=== PATIENT | female | born 1980 | race Caucasian/White ===

== ENCOUNTER 2019-01-17 06:43 | Observation (INO) ==
[2019-01-17] MEDS ORDERED: Ketorolac 30 MG/ML VIAL IVP ONE (10:27)
[2019-01-17] MEDS ORDERED: *HR* FentaNYL (PF) 100 MCG/2 ML VIAL IVP ONE (10:27)
[2019-01-17] MEDS ORDERED: Ondansetron 4 MG/2 ML VIAL IVP PRN ×2 (10:36→14:34)
--- NOTE | 2019-01-17 10:40 | Acute Care Surgery H&P ---
Date of Encounter: 01/17/19 Time of Encounter: 10:38 Assessment and Plan (1) Acute appendicitis Current Visit: Yes Status: Acute The assessment and plan as outlined above was discussed with the patient and/or family members who expressed understanding and agreement. All questions were answered. I explained to the patient that I personally reviewed her CT scan images and report which does demonstrate evidence of acute appendicitis. We will help con trol her pain to proceed with a laparoscopic appendectomy today. Risk and benefits have been discussed with the patient and her family members and they agree to the above plan. Qualifiers: Acute appendicitis type: with localized peritonitis Appendicitis gangrene presence: without gangrene Appendicitis perforation presence: without perforation Appendicitis abscess presence: without abscess Qualified Code(s): K35.30 - Acute appendicitis with localized peritonitis, without perforation or gangrene History of Present Illness Chief complaint: Right lower abdominal pain HPI: Ms. Panchal is a 38 year old female with a past medical history significant for iron deficiency anemia and vitamin D deficiency who states that yesterday she had severe and sudden onset of right lower quadrant abdominal pain that is sharp in nature. She says the pain radiates to the lower pelvic area and towards the midline. She denies any nausea or vomiting and states that she had a bowel movement earlier with no rectal bleeding identified. Beause of her persistent and severe abdominal pain she presented to [facility] and was subsequently transferred to [facility] for further evaluation. Past Med Surg Social Fam HX - Past Medical History Medical history: no medical history Psychiatric history: no psych history - Past Surgical History Surgical History: - Social History Smoking Status: Never smoker Smokeless Tobacco Status: No Alcohol use: none Drug use: none Medications and Allergies No Known Home Drugs 01/17/19 [History] Allergy/AdvReac Type Severity Reaction Status Date / Time No Known Allergies Allergy Verified 01/17/19 03:15 Review of Systems All systems PM: reviewed and no additional remarkable complaints except as stated All systems PM: The remainder of the systems were reviewed and are negative General Surgery Exam Initial Vital Signs Temp Pulse Resp BP Pulse Ox 100.1 F H 99 15 116/73 96 01/17/19 10:15 01/17/19 10:15 01/17/19 10:15 01/17/19 10:15 01/17/19 10:15 - Eyes PERRL, normal ocular movement - Respiratory normal expansion, normal respiratory effort, clear to auscultation - Cardiovascular Cardiovascular exam: Present: RRR - Abdomen Abdomen general surgery: Present: bowel sounds present, soft, tender (Positive pain to palpation in the RLQ) - Neurologic Present: CN 2-12 grossly intact - Musculoskeletal Present: other (No clubbing, cyanosis, or edema) - Psychiatric Psychiatric general surgery: Present: A&Ox3, oriented to person, oriented to place, oriented to time Results - Labs All other labs normal. - Imaging CT scan - abdomen: report reviewed, image reviewed (I personally reviewed the CT scan images and report which shows significant inflammation of the appendix with evidence of an appendicolith. No free air identified)
[2019-01-17] MEDS ORDERED: 0.9 % Sodium Chloride 1,000 ML IVC SCH (10:45)
[2019-01-17] MEDS ORDERED: *HR* FentaNYL (PF) 100 MCG/2 ML VIAL ONE (12:37)
[2019-01-17] MEDS ORDERED: *HR* Midazolam HCl 2 MG/2 ML VIAL ONE (12:38)
[2019-01-17] MEDS ORDERED: *HR* Propofol 200 MG/20 ML VIAL IVP ONE (12:38)
[2019-01-17] MEDS ORDERED: Dexamethasone 4 MG/ML VIAL ONE (12:40)
[2019-01-17] MEDS ORDERED: Lidocaine -MPF 2% 2 ML VIAL ONE (12:40)
[2019-01-17] MEDS ORDERED: *HR* Succinylcholine 200 MG/10 ML VIAL IVP ONE (12:40)
[2019-01-17] MEDS ORDERED: *HR* Rocuronium Bromide 50 MG/5 ML VIAL ONE (12:40)
--- NOTE | 2019-01-17 12:41 | Anesthesia Evaluation PreOp ---
Date of Encounter: 01/17/19 Time of Encounter: 12:39 - Past History Planned Operation: Laparoscopic Appendectomy Cardiac History: Denies any Significant Hx Pulmonary History: Denies Any Significant HX CLINIC ADMINISTRATOR History: Denies Any Significant HX Other Medical History: Denies Any Significant HX Anesthesia History: No Prior Anesthetic Complications, Past Anesthesia Test: Negative (01/17/2019) Alcohol Use: none Drug use: none Medications and Allergies No Known Home Drugs 01/17/19 [History] Allergy/AdvReac Type Severity Reaction Status Date / Time No Known Allergies Allergy Verified 01/17/19 03:15 - Meds/Allergy Pre-op Review Medications Reviewed: Yes Allergies Reviewed: Yes Beta Blockers on Current Med List: No Anesthesia Results - Labs Laboratory Tests 01/17/19 01/17/19 01/17/19 03:30 03:50 03:50 WBC 13.4 H Hgb 12.9 Hct 38.4 Plt Count 219 PT INR Sodium 137 Potassium 3.3 L BUN 16 Creatinine 0.80 Urine Test Negative 01/17/19 06:50 WBC Hgb Hct Plt Count PT 12.6 H INR 1.1 Sodium Potassium BUN Creatinine Urine Test Anesthesia Exam Vital Signs/O2 Sat, Most Current Temp Pulse Resp BP Pulse Ox 100.1 F H 99 15 116/73 96 01/17/19 10:15 01/17/19 10:15 01/17/19 10:15 01/17/19 10:15 01/17/19 10:47 Height: 5'5''/1.65m Weight: 160 lbs/72.6 kg NPO (# of Hours): 8 Pain Scale: 0 Pain Scale Used: Numeric (1 - 10) - HEENT Pupil (Motor): EOMI Mallampati: II Teeth: Normal Oral Opening: Greater than 3 - CLINIC ADMINISTRATOR LOC: Oriented CLINIC ADMINISTRATOR Motor: Normal RUE, Normal LUE, Normal RLE, Normal LLE, Normal Face CLINIC ADMINISTRATOR Sensory: Normal: RUE, LUE, RLE, LLE, Face - Cardiac Rhythm: Regular Murmur: None - Pulmonary Breath Sounds: bilateral Clear Respiratory Effort: Symmetrical Anesthesia Assess/Plan ASA Score: 1 Level of consciousness: Cooperative, Oriented, Tranquil Anesthetic Plan: General Monitoring Plan: Standard Monitors Recovery Plan: PACU
[2019-01-17] MEDS ORDERED: *HR* OxyCODONE Immed Rel 5 MG TABLET PO PRN (12:42)
[2019-01-17] MEDS ORDERED: *HR* HYDROmorphone (PF) 1 MG/ML SYRINGE IVP PRN (12:42)
[2019-01-17] MEDS ORDERED: Lidocaine -MPF 4% 5 ML AMPUL ONE (12:42)
[2019-01-17] MEDS ORDERED: Acetaminophen IV 1,000 MG/100 ML INFUS..BTL ONE (12:54)
[2019-01-17] MEDS ORDERED: *HR* HYDROMORPHONE 2 MG/ML VIAL ONE (13:24)
[2019-01-17] MEDS ORDERED: Neostigmine Methylsulfate 3 MG/3 ML SYRINGE ONE (13:29)
--- NOTE | 2019-01-17 13:53 | Operative Note ---
Date of procedure: 01/17/19 Pre-op diagnosis: Acute appendicitis Post-op diagnosis: same Procedure: Laparoscopic appendectomy Anesthesia: GETA Surgeon: Shade Fernandez Was there an parking assistant present: No Estimated blood loss (cc): 5 Specimen: appendix Condition: stable Disposition: PACU Procedure in Detail: Date of surgery: 01/17/19 After properly identifying the patient, the patient was brought to the operating room and placed in the supine position. After proper IV sedation was achieved followed by general endotracheal intubation, the patient's abdomen was prepped and draped in a normal sterile fashion. A timeout was performed noting the patient's name and type of procedure to be performed. On examination the patient had a small umbilical hernia noted. Half percent Marcaine with epinephrine was used to infiltrate the epidermal, dermal, and subcutaneous tissue just inferior to the umbilicus. An 11 blade scalpel was used to make an incision in this area and dissection was carried down to the hernia defect. The 12 mm port was placed through the hernia defect and a laparoscopic camera was placed through the port which showed no injury to the intra-abdominal organs upon entry. The abdomen was insufflated with carbon dioxide and a suprapubic 5 mm port and a left lower quadrant 5 mm port were then placed under direct camera visualization. The patient was placed in a Trendelenburg position with the left side tilted downwards and the right lower quadrant was examined. The appendix did show evidence of thickening with necrotic of the erosa at the mid to distal portion of the appendix, consistent with acute appendicitis. The appendix was carefully dissected away from the lateral sidewall attachments with Bovie cauterization and blunt dissection. The mesentery of the appendix was also transected with a laparoscopic LigaSure. This dissection was carried down to the base of the appendix which was transected with a laparoscopic SAURABH stapler. The appendix was removed from the abdomen via an Endobag. Reinspection demonstrated maintenance of hemostasis at the staple line and the pelvis was examined. There was evidence of purulent exudate within the pelvis which was easily suctioned. The pelvis and right lower quadrant were then copiously irrigated with normal saline solution until the effluent was clear. Once again the staple line of the appendiceal stump was examined with maintenance of hemostasis noted and all ports are then removed from the abdomen after the abdomen was desufflated. The hernia defect was closed/repaired in a [id number] fashion with 0 Vicryl suture. The epidermal and dermal layer for the remaining incisions were closed with 4-0 Monocryl sutures. Needle, sponge, and instrument counts were correct 2 and the incisions were covered with Steri-Strips and Band-Aids. The patient was aroused from IV sedation, extubated in the operating room without complication, and transported to the recovery room in stable condition.
--- NOTE | 2019-01-17 14:27 | Anesthesia Evaluation Post Op ---
Date of Encounter: 01/17/19 Time of Encounter: 14:25 - Vital Signs Vital Signs: Vital Signs/O2 Sat, Most Current Temp Pulse Resp BP Pulse Ox 99.1 F 64 16 105/63 94 01/17/19 13:59 01/17/19 14:19 01/17/19 14:19 01/17/19 14:19 01/17/19 14:19 - Lungs Lungs: Clear Ascult./Percussion - Airway Airway: Non-obstructed - Cardiovascular Regular Rate - Mental Status Mental Status: Alert & Oriented, Answers Appropriately, Baseline Status - Pain Pain Scale: 0 Pain Scale used: Numeric (1 - 10) - Nausea Vomiting Nausea Vomiting: Not Present - Hydration Hydration: Ice chips, Has not voided - Discharge PostOp Status: Transfer Patient to floor
[2019-01-17] MEDS ORDERED: Morphine Sulfate Oral CONC 10 MG/0.5 ML ORAL.SYG SL PRN (14:34)
[2019-01-17] MEDS ORDERED: *HR* OxyCODONE/APAP 5/325 TABLET PO PRN (14:34)
[2019-01-17] MEDS: Piperacillin/Tazobactam 3.375 GM in 0.9 % Sodium Chloride Mini Bag 100 ML IVPB SCH (16:51)
[2019-01-17] MEDS: Ketorolac 30 MG/ML VIAL IVP SCH (17:56)
[2019-01-17] MEDS: 0.9 % Sodium Chloride 1,000 ML IVC SCH (22:50)
[2019-01-18] MEDS: Ketorolac 30 MG/ML VIAL IVP SCH ×3 (00:23→12:10)
[2019-01-18] MEDS: Piperacillin/Tazobactam 3.375 GM in 0.9 % Sodium Chloride Mini Bag 100 ML IVPB SCH ×2 (00:24→08:13)
[2019-01-18] MEDS: 0.9 % Sodium Chloride 1,000 ML IVC SCH (00:36)
[2019-01-18 05:08] LABS: Basophils % 0.1 %; Hematocrit 33.7 % (35.3-44.9); Hemoglobin 11.1 g/dL (11.5-15.4); Immature Granulocytes % 0.5 % (0-4); Lymphocytes # 1.5 K/mcL (0.6-4.6); Lymphocytes % 11.1 %; Mean Corpuscular HGB Conc 32.9 g/dL (31.6-35.5); Mean Corpuscular Hemoglobin 28.9 pg (28.0-33.3); Mean Corpuscular Volume 87.8 fL (83.0-100.0); Mean Platelet Volume 10.2 fL (9.4-12.4); Monocytes # 0.9 K/mcL (0.0-1.3); Monocytes % 6.8 %; Neutrophils # 10.6 K/mcL (1.6-8.9); Platelet Count 203 K/mcL (140-400); Red Blood Count 3.84 M/mcL (3.82-4.97); Red Cell Distribution Width 13.9 % (11.5-14.5); Segmented Neutrophils % 81.5 %
[2019-01-18 05:27] LABS: BUN/Creatinine Ratio 16 (6-26); Blood Urea Nitrogen 15 mg/dL (6-20); Calcium 8.4 mg/dL (8.6-10.3); Carbon Dioxide 24 mEq/L (23-29); Chloride 105 mEq/L (98-107); Glucose 119 mg/dL (70-105); Osmolality,Calculated 282 (280-300); Potassium 3.8 mEq/L (3.5-5.1); Sodium 135 mEq/L (136-145); eGFR For African Americans > 60 (> 60); eGFR For Non-African Americans > 60 (> 60)
[2019-01-18 06:50] VITALS: BP 99/66
--- NOTE | 2019-01-18 08:15 | Discharge Summary ---
Orders not resulted at time of discharge: Pending orders 01/17/19 13:43 Surgical Pathology [PTH] Routine Date of Encounter: 01/18/19 Time of Encounter: 08:13 - Discharge Diagnosis (1) Acute appendicitis Priority: Primary Status: Acute Qualifiers: Acute appendicitis type: with localized peritonitis Appendicitis gangrene presence: without gangrene Appendicitis perforation presence: with perforation Appendicitis abscess presence: with abscess Qualified Code(s): K35.33 - Acute appendicitis with perforation and localized peritonitis, with abscess General Surgery Exam Initial Vital Signs Temp Pulse Resp BP Pulse Ox 100.1 F H 99 15 116/73 96 01/17/19 10:15 01/17/19 10:15 01/17/19 10:15 01/17/19 10:15 01/17/19 10:15 - Hospital Course Hospital course: Ms. Panchal is a 38 year old female is into the hospital with symptoms of acute appendicitis. She underwent a left scopic appendectomy and tolerated the procedure well. She noted improvement in her overall discomfort with no nausea or vomiting symptoms and was able to tolerate a regular diet on postoperative day 1. Due to overall continued improvement she was able to be discharged on postoperative day 1 with instructions to follow-up with [facility] in 2 weeks. Time spent discussing smoking cessation with patient: 3 to 10 minutes - Time Spent with Patient Total time spent providing and/or coordinating discharge services: Less than 30 minutes - Discharge Medications Prescriptions: New Amoxicillin/Clavulanate [Augmentin] 875 mg PO BIDWM 5 Days #10 tablet Docusate [Colace] 100 mg PO BID #20 capsule OxyCODONE/APAP 5/325 [Percocet 5/325 MG] 1 each PO Q6HR PRN 7 Days #28 tablet PRN Reason: Pain Home Medications: Amoxicillin/Clavulanate [Augmentin] 875 mg PO BIDWM 5 Days #10 tablet 01/18/19 [Rx] Docusate [Colace] 100 mg PO BID #20 capsule 01/18/19 [Rx] OxyCODONE/APAP 5/325 [Percocet 5/325 MG] 1 each PO Q6HR PRN 7 Days #28 tablet 01/18/19 [Rx] Allergies/Adverse Reactions: Allergy/AdvReac Type Severity Reaction Status Date / Time No Known Allergies Allergy Verified 01/17/19 03:15 Date of admission: 01/17/19 09:20 Primary care physician: Yoselin Mccord DO Discharging clinician: Shade Fernandez Anticipated date of discharge: 01/18/19 Labs on day of discharge: Labs from last 24 hours 01/18/19 01/18/19 03:55 03:55 WBC 13.0 H RBC 3.84 Hgb 11.1 L D Hct 33.7 L MCV 87.8 MCH 28.9 MCHC 32.9 RDW 13.9 Plt Count 203 MPV 10.2 Immature Gran % 0.5 Seg Neutrophils % 81.5 Lymphocytes % 11.1 Monocytes % 6.8 Eosinophils % 0.0 Basophils % 0.1 Neutrophils # 10.6 H Lymphocytes # 1.5 Monocytes # 0.9 Eosinophils # 0.0 Basophils # 0.0 Sodium 135 L Potassium 3.8 Chloride 105 Carbon Dioxide 24 BUN 15 Creatinine 0.94 Est GFR ( Amer) > 60 Est GFR (Non-Af Amer) > 60 BUN/Creatinine Ratio 16 Glucose 119 H Calculated Osmolality 282 Calcium 8.4 L - Patient Status Disposition: Home, Self-Care Condition: Good Overall status at discharge: patient is progressing back to baseline - Discharge Instructions Instructions: Appendicitis (DC) Follow Up With: Yoselin Mccord DO [Primary Care Provider] - Additional Instructions: No heavy lifting greater than 15lbs for two weeks. May remove Band-Aids in two days. May shower in two days. May return to work in one week (as long as there are light duty restrictions).
[2019-01-18] MEDS ORDERED: Pantoprazole 40 MG VIAL IVP SCH ×2 (09:00)
== END 2019-01-18 12:45 | disposition home or self-care (01) ==
LOC: 3ANU
PROVIDERS: ADMIT Surgery; ATTEND Surgery